=== PATIENT | female | born 1985 | race Caucasian/White ===

== ENCOUNTER 2019-06-05 01:26 | Day surgery (SDC) | payer OTHER, SELFPAY ==
[2019-05-26 10:43] VITALS: BMI 24.1
--- NOTE | 2019-05-29 13:24 | PM.IMHP ---
H&P: HPI History of Present Illness Chief complaint: left peroneal tendon tear Narrative: Betty Green is a 33 year old female Complains of left ankle pain. Pain with weight-bearing and activity. Located lateral aspect of the ankle. Radiates up the side of the leg and down to the side of the foot. Pain is unrelieved with physical therapy, home exercises, activity modification, topical ointment, oral medication and cortisone injections. Patient presents for operative treatment. Review of Systems Constitutional: Constitutional: Denies fever(s) Eyes: Eyes: Denies blurry vision ENT: Reports Normal hearing present Cardiovascular: Cardiovascular: Denies chest pain and Denies dyspnea Respiratory: Respiratory: Denies dyspnea and Denies wheezing Gastrointestinal: Gastrointestinal: Denies abdominal pain Genitourinary: Genitourinary: Denies urinary urgency Musculoskeletal: Musculoskeletal: Reports as per HPI and Denies numbness Integumentary/Breasts: Skin/Breast: Denies changing lesions and Denies sores Neurologic: Reports Normal hearing present, Denies behavioral changes, Denies confusion, Denies numbness and Denies convulsions Psychiatric: Psychiatric: Denies behavioral changes, Denies confusion and Denies hallucinations Endocrine: Endocrine: Denies heat intolerance and Reports other ( Diabetes) Hematologic/Lymphatic: Hematologic/Lymphatic: Denies easy bleeding Allergic/Immunologic: Allergic/Immunologic: Denies wheezing PMFSH Past Medical History Medical History Diabetes Retrocalcaneal bursitis Family History Family History Other Diabetes mellitus Family history of arthritis Family history of malignant neoplasm Social History Social History Smoking status: Never smoker Alcohol intake: never Substance use: unknown Gender identity (if verbalized by the patient): Female Spiritual care concerns: No Meds Home Medications and Allergies Home Medications Medication Instructions Recorded Confirmed Type loratadine 10 mg tablet 10 mg PO DAILY 03/12/19 05/26/19 History triamcinolone acetonide 55 mcg 1 spray NASAL DAILY 03/12/19 05/26/19 History nasal spray aerosol Continuous Glucose Monitor 05/26/19 05/26/19 History acetaminophen [Tylenol] 325 mg PO DAILY PRN 05/26/19 05/26/19 History calcium carbonate-vitamin D3 1 cap PO DAILY 05/26/19 05/26/19 History [Calcium 600 + D(3)] insulin lispro [Humalog U-100 0.65 - 0.8 unit SUBCUT USEASDIRECTD 05/26/19 05/26/19 History Insulin] naproxen sodium [Aleve] 220 mg PO BID 05/26/19 05/26/19 History subcutaneous insulin pump 05/26/19 05/26/19 History Allergies Allergy/AdvReac Type Severity Reaction Status Date / Time cefaclor Allergy Unknown Rash Verified 05/26/19 10:46 Exam Const: General: No confusion Orientation/consciousness: No confusion HENMT: Head: normal to inspection, normocephalic and atraumatic Eyes: Conjunctivae: conjunctivae normal Sclera: sclerae normal Neck: Neck: supple and nontender Chest: Chest palpation & inspection: normal inspection of the chest Resp: Effort & Inspection: normal respiratory effort and no audible wheezes Cardio: Rate: regular rate Rhythm: regular rhythm : General: Yes deferred Skin: General skin exam: no rashes or lesions noted Neuro: General: No confusion Extrem: General: capillary refill normal Right upper extremity: normal to inspection Left upper extremity: normal to inspection Right lower extremity: normal to inspection and hip/thigh Details: normal to inspection Left lower extremity: hip/thigh Details: normal to inspection, knee Details: normal to inspection and knee ligament exam normal Details: anterior drawer test normal, valgus stress test normal, varus stress test normal and Homa's test normal, ankle (no
--- NOTE | 2019-06-04 16:49 | WPDANESEPP ---
Anes - Eval Pre Procedure Procedure: Operation Date: 06/05/19 07:30 Proposed Procedures p Left Peroneal Reconstruction - Cole Wheatley MD Date/Time: 06/04/19 16:49 Pre Op Diagnosis: left peroneal tendon tear Patient Data Age: 33 Gender: F Height: 5 ft 5 in Weight: 65.77 kg Allergies Allergy/AdvReac Type Severity Reaction Status Date / Time cefaclor Allergy Unknown Rash Verified 05/26/19 10:46 Home Medications Medication Instructions Recorded Confirmed Type loratadine 10 mg tablet 10 mg PO DAILY 03/12/19 05/26/19 History triamcinolone acetonide 55 mcg 1 spray NASAL DAILY 03/12/19 05/26/19 History nasal spray aerosol Continuous Glucose Monitor 05/26/19 05/26/19 History acetaminophen [Tylenol] 325 mg PO DAILY PRN 05/26/19 05/26/19 History calcium carbonate-vitamin D3 1 cap PO DAILY 05/26/19 05/26/19 History [Calcium 600 + D(3)] insulin lispro [Humalog U-100 0.65 - 0.8 unit SUBCUT USEASDIRECTD 05/26/19 05/26/19 History Insulin] naproxen sodium [Aleve] 220 mg PO BID 05/26/19 05/26/19 History subcutaneous insulin pump 05/26/19 05/26/19 History Patient hx anesthesia problems: none Family hx anesthesia problems: none PMFSH Past Medical History Medical History (Updated 06/04/19 @ 16:54 by Jonas Camejo CRNA) Diabetes Fatty tumor Retrocalcaneal bursitis Surgical History Surgical History (Updated 06/04/19 @ 16:54 by Jonas Camejo CRNA) S/P myringotomy with insertion of tube Family History Family History Other Diabetes mellitus Family history of arthritis Family history of malignant neoplasm Social History Social History Smoking status: Never smoker Alcohol intake: never Substance use: unknown Gender identity (if verbalized by the patient): Female Spiritual care concerns: No Exam Day of Procedure 06/04/19 16:49
[2019-06-05] VITALS (7 sets, daily range): BP systolic 109–131; BP diastolic 56–83; PULSE 77–88; RESP 14–20; TEMP 36.9–37.3; O2SAT 97–99
[2019-06-05] MEDS: LACTATED RINGERS 1,000 ML 30 ML IV CONT (06:54)
[2019-06-05 06:59] LABS: Glucose Point of Care 246 (65-105)
--- NOTE | 2019-06-05 07:01 | P.PNAN_ITS ---
Anes - Eval Final PreProcedure Day of Procedure 06/05/19 07:01 Patient weight: normal Heart: regular rate and rhythm Lungs: clear to auscultation and normal air movement Airway: Mallampati scale class II Neurological: alert and oriented Last oral intake: >/= 8 hours ASA classification: II Emergent: no Anesthetic plan: proceed Anesthesia type and monitoring: general LMA Informed Consent: The patient's anesthetic plan and its attendant risks and be nefits were discussed with the patient/family/POA. Questions were solicited and answers provided to the satisfaction of the patient/family/POA.
--- NOTE | 2019-06-05 07:20 | WPDANESPNB ---
Anes - Peripheral Nerve Block Date/Time: 06/05/19 07:20 I have discussed with the patient/family/POA the placement of a peripheral nerve block for post-operative pain management, including associated risks, benefits, complications, and side effects. Alternative methods of post-operative analgesia were detailed. Questions were solicited and answers provided to the satisfaction of the patient/family/POA. Time-Out: A pre-procedural Time-Out was completed immediately before starting the procedure and confirmed: Patient Identification, Site, Procedure, Patient Position and the Availability of Requisite Equipment. Clinical Indications: Acute post-operative pain management requested by the operative surgeon. Nerve Block Insertion Note Anes-nerve block: posterior fossa sciatic (20cc) left Patient position: supine Skin prep: chlorhexidine Needle: 22 gauge, stimulating, insulated echogenic needle. Needle length: 80 mm Technique: ultrasound (in plane) Injectate: bupivacaine 0.5% with epi 5 mcg/ml (20cc) Observations: tolerated well Complications: none Procedure start time:: 725 Procedure end time:: 730
--- NOTE | 2019-06-05 07:24 | WPDHPUPDATE1 ---
History and Physical Update Update Date/Time: 06/05/19 07:24 History and Physical has been reviewed, including an updated exam of the patient. There are NO changes in the patient's condition. Risks, benefits, and alternatives have been discussed and questions answered. Patient agrees to proceed with procedure.
--- NOTE | 2019-06-05 07:34 | SUR.PREOP ---
0700- DR. PLATT TO SEE PT IN PRE OP. STATED TO LEAVE INSULIN PUMP RUNNNING DURING CASE. IBUPROFEN NOT STARTED IN PRE OP DUE TO CRUTCH TRAINING. 0730- BLOCK PLACED PER ANESTHESIA
[2019-06-05] MEDS: IBUPROFEN IV 800 MG/200 ML 800 MG/200 ML BAG 400 MG IVPB (07:38)
[2019-06-05] MEDS: ceFAZolin 2 GM/D5W 50 ML 2 GM/50 ML BAG IVPB (07:38)
--- NOTE | 2019-06-05 08:59 | P.OP_ITS ---
Procedure Note - Detailed Date of procedure: 06/05/19 Pre-op diagnosis: left peroneal tendon tear Post-op diagnosis: same Procedure performed: LT peroneal reconstruction Description of procedure: Patient identified in the preoperative holding. Informed consent given. Operative extremity marked. Patient received intravenous antibiotics. Patient brought to the operating room where underwent general anesthetic by anesthesia team. Positioned supine on operating room table. Time-out performed confirming the patient, site of the surgery and the plan. Soft bump placed under the left hip. Left foot and ankle prepped and draped in the usual sterile surgical fashion using ChloraPrep skin solution. Foot and ankle exsanguinated and a calf tourniquet inflated 225 mmHg. Passive motion of the ankle performed while under anesthesia. Popping of the peroneal tendons posterior to the fibula noted. Curvilinear incision made over the peroneal tendon sheath with a 15 blade knife. Hemostasis controlled electrocautery. Neurovascular elements protected. Superior peroneal retinaculum incised in line with skin incision. Peroneal tendon sheath inspected there was noted to be accessory peroneal tendon with synovitis. Split tear in the peroneus longus also identified. Inferior peroneal retinaculum incised in line with skin incision. Prominent peroneal tubercle with impingement noted. The split tear of the peroneus longus involved approximately 20% of the tendon. This was sharply excised with a 15 blade knife. The accessory peroneal tendon and synovitis was sharply excised with 15 blade knife proximal to the superior peroneal retinaculum into the musculature. The prominence of the peroneal tubercle removed with a rongeur and smoothed with a rasp. Wound thoroughly irrigated with antibiotic solution. Ankle taken through range of motion and the remaining peroneal tendons noted to be stable. Superior and inferior peroneal retinaculum repaired with 3 0 Monocryl interrupted suture. Subcutaneous tissue repaired with 3 0 Monocryl interrupted suture and skin repaired with 3 0 Monocryl running subcuticular stitch. Sterile dressing and bulky dressing with splint applied. Tourniquet released. Good capillary refill noted in the toes. All sponge needle and instrument counts correct at the end of the case. Patient awoke from anesthesia, extubated and taken to the recovery room in stable condition. Anesthesia: GLMA Surgeon: Cole Wheatley MD Batting Machine Operator Insulation: clinical medical assistant Estimated blood loss (mL): 5 Drains: No Packing: No Pathology: none sent Complications: None Condition: stable Disposition: PACU Findings: Accessory peroneal tendon with synovitis within the peroneal tendon sheath. Split tear of the peroneus longus involving 20% of the tendon. Peroneus brevis intact. Prominent lateral peroneal tubercle.
--- NOTE | 2019-06-05 09:12 | SUR.PHASEI ---
Dr Cuellar aware of blood sugar no new orders
[2019-06-05 09:17] LABS: Glucose Point of Care 252 (65-105)
== END 2019-06-05 10:53 | disposition home or self-care (01) ==
PROVIDERS: Visit Provider Orthopaedic Surgery
PROC: (CPT 27698; principal; 2019-06-05 07:30)
DX: S86.312A Strain of muscle(s) and tendon(s) of peroneal muscle group at lower leg level, left leg, initial encounter (principal); G89.18 Other acute postprocedural pain; E11.9 Type 2 diabetes mellitus without complications; Z79.4 Long term (current) use of insulin; X58.XXXA Exposure to other specified factors, initial encounter
CPT/HCPCS: 28200; 64445; J0690; J1100; J1741; J2250; J2405; J2704; J3010; J7120

== ENCOUNTER 2023-12-03 00:41 | Day surgery (SDC) | payer OTHER, SELFPAY ==
[2023-11-29 08:25] VITALS: BMI 26.6
--- NOTE | 2023-11-29 08:32 | PC.NURSE ---
Report to the Outpatient Waiting Room, entrance under the green pavilion located off [facility], at time _0600_ on date _[id number]_. Planned Procedure Time: _0730_. Time changes happen often and if your time is changed the preop area will call you the afternoon before. - You and your visitor will be asked to self-screen and do not enter if you have any COVID symptoms. - A mask is optional within the hospital at this time. Patients may have clear liquids (water, carbonated beverages, clear teas, apple juice) until 3 hours prior to surgery with a maximum of 20 ounces. - No food from midnight until time of surgery Take the following medications with a SIP of water the morning of surgery: ___Astepro and continue insulin pump DO NOT STOP ANY OF YOUR OTHER PRESCRIPTION MEDICATIONS PRIOR TO SURGERY ?EXCEPT THE FOLLOWING Medications to discontinue per physician Vitamins Date to take last dose Please no make-up, nail nicaraguan, hairspray, perfume, deodorant, or body powder the day of surgery. No jewelry (including any body piercings) or valuables the day of surgery, leave them at home. Please take a shower or bath the night before, or the morning of, surgery with an antibacterial soap. Wear comfortable, loose fitting clothing. - Jewelry must be removed prior to entering the operating room. Rings and piercings that are not removed may be cut off. - The hospital will not accept responsibility for valuables. - Please leave all valuables, including medications, at home the day of surgery. If you are going home after surgery, a licensed test car driver must drive you home. - NO public transportation without another adult if you receive anesthesia. - We recommend that an adult stay with you for 24 hours following discharge. - We also recommend that you do not drive, make important decision, drink alcoholic beverages, or take any drugs that were not prescribed by your health care provider for at least 24 hours after your discharge time. Follow any additional instructions given to you from your surgeon. If you or anyone in your household have experienced Covid symptoms in the past week, please notify your surgeon or the nurse liaison at the phone number below for possible testing. Telephone instructions given to __Renee__and asked if any additional questions and then verbalized understanding. Patient advised to call surgeon office or pre surgery nurse liaison [phone] if any additional questions.
[2023-12-03] VITALS (9 sets, daily range): BP systolic 88–120; BP diastolic 58–73; PULSE 51–74; RESP 12–18; TEMP 36.7; O2SAT 97–100
[2023-12-03] MEDS: ACETAMINOPHEN 500 MG TABLET 1000 MG PO (06:50)
[2023-12-03 06:53] LABS: Glucose Point of Care 259 mg/dl (65-105)
[2023-12-03] MEDS: KETOROLAC 15 MG/ML VIAL (*BKC) IV PUSH (06:55)
[2023-12-03] MEDS: LACTATED RINGERS 1,000 ML 30 ML IV CONT ×2 (06:55→08:41)
--- NOTE | 2023-12-03 07:13 | WPDHPUPDATE1 ---
History and Physical Update Update Date/Time: 12/03/23 07:13 History and Physical has been reviewed, including an updated exam of the patient. There are NO changes in the patient's condition. Risks, benefits, and alternatives have been discussed and questions answered. Patient agrees to proceed with procedure.
--- NOTE | 2023-12-03 07:24 | WPDANESEPPF ---
Anes - Initial Pre Proc Eval Procedure: Operation Date: 12/03/23 07:30 Proposed Procedures p Right Peroneal Tendon Reconstruction - Cole Wheatley MD Date/Time: 12/03/23 07:24 Surgeon: Cole Wheatley MD Pre Op Diagnosis: right peroneal tendon tear Patient Data Age: 38 Gender: F Height: 1.65 m Weight: 74.3 kg Last Vital Signs Temp 36.7 C 12/03/23 06:27 Pulse 74 12/03/23 06:27 Resp 18 12/03/23 06:27 BP 116/73 12/03/23 06:27 Pulse Ox 100 12/03/23 06:27 O2 Del Method Room Air 12/03/23 06:27 Allergies Allergy/AdvReac Type Severity Reaction Status Date / Time cefaclor Allergy Unknown Rash Verified 12/03/23 07:14 Home Medications Medication Instructions Recorded Confirmed Type Continuous Glucose Monitor 05/26/19 12/03/23 History acetaminophen 325 mg capsule 325 mg PO DAILY PRN Pain 05/26/19 12/03/23 History (Tylenol) calcium carbonate 600 mg-vitamin 1 cap PO DAILY 05/26/19 12/03/23 History D3 5 mcg (200 unit) capsule (Calcium 600 + D(3)) insulin lispro 100 unit/mL 0.65 - 0.8 unit subcut USEASDIRECTD 05/26/19 12/03/23 History subcutaneous cartridge (Humalog U-100 Insulin) subcutaneous insulin pump 05/26/19 12/03/23 History azelastine 205.5 mcg (0.15 %) 2 spray intranasal DAILY 11/29/23 12/03/23 History nasal spray cetirizine 10 mg tablet (Zyrtec) 10 mg PO DAILY 11/29/23 12/03/23 History cholecalciferol (vitamin D3) 50 50 mcg PO DAILY 11/29/23 12/03/23 History mcg (2,000 unit) capsule (Vitamin D3) dupilumab 300 mg/2 mL subcutaneous 300 mg subcut WEEKLY 11/29/23 12/03/23 History syringe (Dupixent) hydroxychloroquine 200 mg tablet 200 mg PO DAILY 11/29/23 12/03/23 History Laboratory Tests 12/03/23 06:49 POC Capillary Glucose 259 H mg/dl (65-105) Patient hx anesthesia problems: none Family hx anesthesia problems: none Results Review: All pre-operative results and documents have been reviewed as part of the pre-operative evaluation. [facility] Past Medical History Medical History Acute right ankle pain Diabetes Fatty tumor Peroneal tendinitis of right lower extremity Pes cavus of right foot Retrocalcaneal bursitis Right ankle pain Sprain of right ankle Tear of peroneal tendon of right foot Surgical History Surgical History S/P myringotomy with insertion of tube Family History Family History Other Diabetes mellitus Family history of arthritis Family history of malignant neoplasm Social History Social History Smoking status: Never smoker Alcohol intake: never Substance use: unknown Living arrangements: with family Gender identity (if verbalized by the patient): Female Spiritual care concerns: No Anes - Eval Final PreProcedure Day of Procedure 12/03/23 07:24 Patient weight: overweight Heart: regular rate and rhythm Lungs: clear to auscultation Airway: Mallampati scale class II Neurological: alert and oriented Last oral intake: >/= 8 hours ASA classification: III Emergent: no Anesthetic plan: proceed Anesthesia type and monitoring: general LMA and standard monitoring Results Review: All pre-operative results and documents have been reviewed as part of the pre-operative evaluation. Informed Consent: The patient's anesthetic plan and its attendant risks and benefits were discussed with the patient/family/POA. Questions were solicited and answers provided to the satisfaction of the patient/family/POA.
[2023-12-03] MEDS: ceFAZolin 2 GM/D5W 50 ML 2 GM/50 ML BAG IVPB (07:27)
[2023-12-03] MEDS: BUPivacaine HCL 0.5% 10 ML AMP 20 ML INFILTRATE (07:48)
[2023-12-03 08:40] LABS: BEDSIDEPREGUCG Negative
--- NOTE | 2023-12-03 08:45 | P.OP_ITS ---
Procedure Note - Detailed Date of Procedure 12/03/23 Pre-op Diagnosis right peroneal tendon tear Post-op Diagnosis Same Procedure Performed Right ankle peroneal tendon reconstruction. 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 Ultrasound shows tear of the peroneal tendon. Previous surgery on the left side for tendon tear and accessory tendon. Has done well. Presents now for operative treatment of the right side. Findings Accessory peroneal tertius tendon. Low-lying muscle belly of the peroneal into the peroneal tendon sheath. Enlarged peroneal tubercle. Description of Procedure Patient identified in the preoperative holding. Informed consent given. Operative extremity marked. Patient received intravenous antibiotics. Patient brought to the operating room where underwent general anesthetic by anesthesia team. Positioned supine on operating room table. Time-out performed confirming the patient, site of the surgery and the plan. Soft bump placed under the right hip. Right foot and ankle prepped and draped in the usual sterile surgical fashion using ChloraPrep skin solution. Foot and ankle exsanguinated and a calf tourniquet inflated 225 mmHg. Passive motion of the ankle performed while under anesthesia. Popping of the peroneal tendons posterior to the fibula noted. C urvilinear incision made over the peroneal tendon sheath with a 15 blade knife. Hemostasis controlled electrocautery. Neurovascular elements protected. Superior peroneal retinaculum incised in line with skin incision. Peroneal tendon sheath inspected there was noted to be accessory peroneal tendon with synovitis. Split tear in the peroneus longus also identified. Inferior peroneal retinaculum incised in line with skin incision. Prominent peroneal tubercle with impingement noted. The split tear of the peroneus longus involved approximately 20% of the tendon. This was sharply excised with a 15 blade knife. The accessory peroneal tendon and synovitis was sharply excised with 15 blade knife proximal to the superior peroneal retinaculum into the musculature. The prominence of the peroneal tubercle removed with a rongeur and smoothed with a rasp. Wound thoroughly irrigated with antibiotic solution. Ankle taken through range of motion and the remaining peroneal tendons noted to be stable. Superior and inferior peroneal retinaculum repaired with 3 0 Monocryl interrupted suture. Deep fascia repaired with 0 Vicryl interrupted suture, subcuticular tissue approximated with 3-0 Monocryl interrupted suture, and skin repaired with 3 0 Monocryl running subcuticular stitch. Sterile dressing and bulky dressing with splint applied. Tourniquet released. Good capillary refill noted in the toes. All sponge needle and instrument counts correct at the end of the case. Patient awoke from anesthesia, extubated and taken to the recovery room in stable condition. Implants None Estimated Blood Loss 5 Tourniquet Time Total Tourniquet Time: 40 Drains No Packing No Pathology None sent Complications None Condition Stable Disposition PACU [facility] Billing Surgery - Charge Forward: Surgery Billing ([id number])
[2023-12-03 08:59] LABS: Glucose Point of Care 176 mg/dl (65-105)
[2023-12-03] MEDS: oxyCODONE HCL (*CRX) 5 MG TAB IR PO (10:12)
== END 2023-12-03 10:35 | disposition home or self-care (01) ==
PROVIDERS: Visit Provider Orthopaedic Surgery
PROC: (CPT 27650; principal; 2023-12-03 07:30)
DX: S86.311A Strain of muscle(s) and tendon(s) of peroneal muscle group at lower leg level, right leg, initial encounter (principal); M65.871 Other synovitis and tenosynovitis, right ankle and foot; M76.71 Peroneal tendinitis, right leg; E11.9 Type 2 diabetes mellitus without complications; Z98.890 Other specified postprocedural states; Z79.4 Long term (current) use of insulin; Z96.41 Presence of insulin pump (external) (internal); Z80.9 Family history of malignant neoplasm, unspecified; X50.1XXA Overexertion from prolonged static or awkward postures, initial encounter
CPT/HCPCS: 27680; 82948; A9270; J0690; J1200; J1885; J2250; J2405; J2704; J3010; J7120